=== PATIENT | female | born 1980 | race Caucasian/White ===

== ENCOUNTER 2024-03-04 21:22 | Emergency (ER) | payer OTHER, SELFPAY ==
[2024-03-04 21:38] VITALS: BP 129/83; BMI 21.3
--- NOTE | 2024-03-04 23:56 | ED.SKININJ ---
HPI-Injury
<GERONIMO Ernandez - Last Filed: 03/05/24 05:54>
General
Chief Complaint: Skin Problem
Source: patient
Exam Limitations: none
Time Seen by Provider: 03/04/24 23:49
Nursing documentation reviewed up to this point in time: agreed with
Travel History
Have you had any contact with someone who has COVID-19?: No
Do you have any symptoms of coronavirus? Fever > 100 degrees, chills, cough, shortness of breath, sore throat, loss of taste or smell, muscle aches, or headache?: No
History of Present Illness-Injury
Is this injury a work related problem?: No
Is pt an associate of [facility]?: No
Initial Injury comments:
This is a 43 year old female with no significant history who presents to the ER s/p left index finger laceration x3 hours. She was cutting parsley with a clean kitchen knife around 9:30pm tonight when the knife slipped and made contact with the tip
of the index finger going into the nail. She is UTD on her tetanus. She has some mild pain on her nail. She did not have any medication to help relieve this. She denies fevers, chills, lightheadedness/dizziness, chest pain, shortness of breath, or
headache.
Past History
<GERONIMO Ernandez - Last Filed: 03/05/24 05:54>
Past History
ED Past Medical History: None
ED Past Surgical History: None
Review of Systems
<GERONIMO Ernandez - Last Filed: 03/05/24 05:54>
Review of Systems
Allergies reviewed?: Yes
All Other Systems: Not applicable
Constitutional: Reports no symptoms
EENT: Reports no symptoms
Respiratory: Reports no symptoms
Cardiac: Reports no symptoms
ABD/GI: Reports no symptoms
: Reports no symptoms
Musculoskeletal: Reports no symptoms
Skin: Reports no symptoms
Neurological: Reports no symptoms
Endocrine: Reports no symptoms
Hematologic/Lymphatic: Reports no symptoms
Psychiatric: Reports no symptoms
Phy Exam
<GERONIMO Ernandez - Last Filed: 03/05/24 05:54>
General Physical Exam
General Presentation: well appearing and no apparent distress
General Skin: warm and dry
General Habitus: normal
General Mental: alert
General Hydration: appears well hydrated
ENT Exam
ENT Exam: EOMI, pharynx normal, neck supple and normocephalic
Eye Exam
Eye Exam: PERRL, cornea clear and conjunctiva normal
Cardiovascular Exam
Cardiovascular Exam: regular rate/rhythm, no edema, no murmur and normal peripheral pulses
Pulmonary Exam
Pulmonary Exam: lungs clear, no respiratory distress, no rales, no crackles, no rhonchi, no stridor, no wheezing and no cough
Gastrointestinal Exam
Gastrointestinal Exam: normal bowel sounds, non tender, soft, no organomegaly, no pulsatile mass and non distended
Neurological Exam
Neurological Exam: alert, oriented x3, no motor deficits and speech normal
Musculoskeletal Exam
Musculoskeletal Exam: full ROM and no edema
Skin Exam
Skin Exam: normal color, warm/dry, no rash, no petechia and laceration (2nd digit laceration going into the nail)
Psychiatric Exam
Psychiatric Exam: normal mood/affect
Course
<GERONIMO Ernandez - Last Filed: 03/05/24 05:54>
Orders/Labs/Results
Orders:
Orders
03/05/24 00:19
Cephalexin Monohydrate [Keflex] 500 mg PO NOW STA
Vital Signs
Initial and Last Documented VS:
Initial Vital Signs
Temp Pulse Resp BP Pulse Ox
98.2 F 79 16 129/83 100
03/04/24 21:38 03/04/24 21:38 03/04/24 21:38 03/04/24 21:38 03/04/24 21:38
Last Documented Vital Signs
Temp Pulse Resp BP Pulse Ox
98.2 F 79 16 129/83 100
03/04/24 21:38 03/04/24 21:38 03/04/24 21:38 03/04/24 21:38 03/04/24 21:38
<Leslie Sanderson DO - Last Filed: 03/05/24 05:54>
Orders/Labs/Results
Orders:
Orders
03/05/24 00:19
Cephalexin Monohydrate [Keflex] 500 mg PO NOW STA
Vital Signs
Initial and Last Documented VS:
Initial Vital Signs
Temp Pulse Resp BP Pulse Ox
98.2 F 79 16 129/83 100
03/04/24 21:38 03/04/24 21:38 03/04/24 21:38 03/04/24 21:38 03/04/24 21:38
Last Documented Vital Signs
Temp Pulse Resp BP Pulse Ox
98.2 F 79 16 129/83 100
03/04/24 21:38 03/04/24 21:38 03/04/24 21:38 03/04/24 21:38 03/04/24 21:38
Procedures
<GERONIMO Ernandez - Last Filed: 03/05/24 05:54>
Laceration Closure
Left Second Finger(s):
Status of Wound: clean
Size of Wound in cm: 2
Description of Wound Edges: flap-well vascularized
Preparation: cleaned with saline
Type of Closure: Dermabond-skin glue and other (Steri strip)
<GERONIMO Ernandez - Last Filed: 03/05/24 05:54>
MDM/Problems Addressed
Differential Diagnosis Includes:
Finger laceration vs infection
Infection considered, but less likely. Wound site does not have erythema, swelling, or discharge. She also denies any fevers. Finger laceration due to mechanism of injury and physical exam.
<Leslie Sanderson DO - Last Filed: 03/05/24 05:54>
*Pulse Oximetry
Patient hypoxic: no
*Critical Care Note
Total Time (30-74mins, 75-104mins- exclusive of procedures): Not Applicable
ED Attending Note
<GERONIMO Ernandez - Last Filed: 03/05/24 05:54>
-
Portions of this chart may have been created with voice recognition software.� Occasional wrong word or��sound alike� substitutions may have occurred due to the inherent limitations of voice recognition software.
<Leslie Sanderson DO - Last Filed: 03/05/24 05:54>
ED Attending Note
Patient seen and examined by attending physician: Yes
I performed the substantive portion of visit, reviewed & personally made and approve the management plan that is documented in note by myself or LOTUS.: Yes
I performed a history and physical exam of patient and discussed management with resident, I reviewed resident's note and agree with documented findings and plan of care.: Yes
ED Attending Note:
This is a 43-year-old [id number]-cyytizir woman who presents with a laceration distal left index digit that occurred while she was cutting parsley at home/meal prep for tomorrow.
She admits to using a brand-new knife when laceration occurred. She complains of mild local pain to distal left index digit but denies numbness and or weakness.
She believes she is up-to-date with Tdap within the past 5 years.
GENERAL: Alert , in no apparent distress
EYE: anicteric
LUNGS: No respiratory distress.
ABDOMEN: Soft, nondistended, without focal tenderness
NEUROLOGICAL: Alert and oriented x3, no focal neuro deficits. Gait is chowdary and steady.
SKIN: Warm and dry, normal color, no rash. Left
MUSCULOSKELETAL: Index digit has an oblique/linear laceration approximately 2 cm in length horizontally located lateral distal aspect of the digit with superficial laceration of the nail but nailbed is intact. There is no active bleeding.
Laceration is deep dermal in depth. Distal sensation, strength intact. Rapid capillary refill. There is full digit range of motion without difficulty nor pain. Strength is intact. No C/C/E. peripheral pulses are full and equal b/l. No palpable
tenderness.
PSYCH: Normal and appropriate interaction.
Laceration thoroughly irrigated with normal saline solution.
There is no vascular compromise. Nailbed is intact.
Will plan for Dermabond wound glue repair supplemented with Steri-Strip.
Will place on short course of Keflex.
Recommend Tylenol versus ibuprofen as needed for pain.
Patient will check with PCP regarding last tetanus booster and if greater than 5 years would recommend a Tdap.
Discharge Plan
Departure
Patient Disposition: Home (Routine Discharge)
Date of Disposition: 03/05/24
Time of Disposition: 00:20
Patient with high blood pressure during this ER visit?: No
Condition: Good
Discharge Problem:
laceration left index digit
Instructions: Laceration Repair With Glue ED
Prescriptions:
New
cephalexin 500 mg capsule
1,000 mg PO BID 5 Days Qty: 20 0RF
Referrals:
Elinor Stewart MD [Family Provider] - Call in 1-3 days for appt
Interventions
Interventions:
*Risk Screen - Suicide Last Done: 03/04/24 21:38
*Neglect/Abuse Screening Last Done: 03/04/24 21:38
*ED COVID-19 Vaccine History Last Done: 03/04/24 21:38
*Nursing Disposition Last Done: 03/05/24 00:30
ED-Skin Assessment Last Done: 03/05/24 00:29
Discharge Date and Time
Discharge Date/Time: 03/05/24 00:30
Print Language: LEBANESE
[2024-03-05] MEDS: KEFLEX 500 MG PO (00:27)
== END 2024-03-05 00:30 | disposition home or self-care (01) ==
LOC: EMR 21:22
PROVIDERS: EMERGENCY PHYSICIAN Emergency Medicine; FAMILY PHYSICIAN Internal Medicine
DX: S61.211A Laceration without foreign body of left index finger without damage to nail, initial encounter (principal); W26.0XXA Contact with knife, initial encounter
CPT/HCPCS: 99283; 12001